=== PATIENT | female | born 1980 | race Caucasian/White ===

== ENCOUNTER 2025-06-05 20:23 | Emergency (ER) | payer SELFPAY ==
[~2025-06-05] VITALS: Ht 177.8 cm; Wt 81.2 kg
[2025-06-05 20:27] VITALS: TEMP 98.4
[2025-06-05 20:47] LABS: PLATELET COUNT (AUTO) 204 K/uL (150-450); RED BLOOD CELL COUNT(AUTO) 4.49 MIL/uL (4.0-5.2); RED CELL DISTRIBUTION WIDTH 12.4 % (11.5-15.0); WHITE BLOOD COUNT (AUTO) 7.4 K/uL (4.3-11.0)
[2025-06-05 20:52] LABS: CALCIUM, SERUM 9.3 mg/dL (8.5-10.1); CREATININE 0.9 mg/dL (0.6-1.3); SODIUM SERUM 142.0 mmol/L (136-145); UREA NITROGEN, BLOOD 9.0 mg/dL (7-18)
[2025-06-05] MEDS: IV NS 0.9% 1,000 ML BAG IV ONE (20:54)
[2025-06-05] MEDS ORDERED: ACETAMINOPHEN ES 500 MG TABLET ONE (20:59)
[2025-06-05 21:00] VITALS: BP 95/79; O2SAT 99
[2025-06-05] MEDS: ACETAMINOPHEN ES 500 MG TABLET PO ONE (21:07)
[2025-06-05 21:15] LABS: PREGNANCY TEST URINE QUAL NEGATIVE (NEGATIVE)
== END 2025-06-05 23:17 | disposition home or self-care (01) ==
LOC: ER 20:30
DX: S01.111A Laceration without foreign body of right eyelid and periocular area, initial encounter (principal); R55 Syncope and collapse; R42 Dizziness and giddiness; Z88.0 Allergy status to penicillin; Z88.6 Allergy status to analgesic agent; Z88.8 Allergy status to other drugs, medicaments and biological substances; X58.XXXA Exposure to other specified factors, initial encounter; Y93.89 Activity, other specified; Y92.89 Other specified places as the place of occurrence of the external cause; Y99.8 Other external cause status
CPT/HCPCS: 99285; 96360; 71045; 93005; 85025; 80048; 84703; 36415; J7030